=== PATIENT | female | born 1965 | race Caucasian/White ===

== ENCOUNTER 2018-01-03 14:32 | Emergency (ER) | payer SELFPAY ==
[~2018-01-03] VITALS: Ht 157.5 cm; Wt 63.3 kg
[2018-01-03 16:39] VITALS: BP 138/86
== END 2018-01-03 16:42 | disposition home or self-care (01) ==
LOC: ER 16:28
DX: J20.9 Acute bronchitis, unspecified (principal); F17.210 Nicotine dependence, cigarettes, uncomplicated
CPT/HCPCS: 71045; 99283